=== PATIENT | female | born 1975 | race Caucasian/White ===

== ENCOUNTER 2020-03-30 10:14 | Outpatient (NON) | payer BC, SELFPAY ==
[2020-03-30 23:29] LABS: SARS-CoV-2 RNA PCR Positive
== END 2020-03-30 10:15 ==
LOC: ANHCOVIDDT 10:16
PROVIDERS: PCP Family Medicine; Visit Provider Family Medicine
DX: U07.1 COVID-19 (principal); R50.9 Fever, unspecified
CPT/HCPCS: C9803; U0003

== ENCOUNTER 2023-11-02 15:08 | Outpatient (CLI) | payer OTHER, SELFPAY ==
--- NOTE | ~2023-11-02 | MM_ITS ---
EXAMINATION: MM screening [facility] w [facility] HISTORY: Screening TECHNIQUE: Craniocaudal and mediolateral oblique 3-D tomosynthesis images were obtained and synthetic 2-D images were generated. CAD analysis was submitted and interpreted. COMPARISON: No prior mammogram is available for comparison at this institution. BREAST PARENCHYMAL COMPOSITION: Not dense: There are scattered areas of fibroglandular density. FINDINGS: There is no evidence of suspicious mass, calcification, or architectural distortion to sugg est malignancy in either breast. There has been no suspicious interval change. IMPRESSION: 1. No mammographic evidence of malignancy. 2. Recommend routine screening mammography in one year. BI-RADS Category 1: Negative Reviewed, dictated and finalized at location [facility].
== END 2023-11-02 15:09 | disposition home or self-care (01) ==
LOC: ANHIMG 15:09
PROVIDERS: PCP Nurse Practitioner Family; Visit Provider Student in an Organized Health Care Education/Training Program
DX: Z12.31 Encounter for screening mammogram for malignant neoplasm of breast (principal)
CPT/HCPCS: 77063; 77067

== ENCOUNTER 2024-04-02 00:59 | Day surgery (SDC) | payer OTHER, SELFPAY ==
[2024-03-11 12:59] VITALS: BMI 35.2
[2024-04-02 06:56] VITALS: BP 132/83; PULSE 81; RESP 18; TEMP 35.7; O2SAT 97; BMI 36.4
[2024-04-02] MEDS: LACTATED RINGERS 1,000 ML 150 ML IV CONT (07:05)
--- NOTE | 2024-04-02 07:26 | P.PNAN_ITS ---
Anes - Initial Pre Proc Eval Procedure: Operation Date: 04/02/24 08:00 Proposed Procedures p Screening Colonoscopy - Denis Goodman MD Date/Time: 04/02/24 07:26 Surgeon: Denis Goodman MD Pre Op Diagnosis: screening colon Patient Data Age: 49 Gender: F Height: 1.63 m Weight: 96.4 kg Last Vital Signs Temp 35.7 C L 04/02/24 06:56 Pulse 81 04/02/24 06:56 Resp 18 04/02/24 06:56 BP 132/83 04/02/24 06:56 Pulse Ox 97 04/02/24 06:56 O2 Del Method Room Air 04/02/24 06:56 Allergies Allergy/AdvReac Type Severity Reaction Status Date / Time tramadol AdvReac Intermediate Nausea and Verified 04/02/24 06:55 Vomiting Home Medications ?Medication ?Instructions ?Recorded ?Confirmed ?Type gabapentin 300 mg capsule 300 mg PO QHS 09/10/23 04/02/24 History lorazepam 1 mg tablet 1 mg PO DAILY 09/10/23 04/02/24 History estradiol 1 mg tablet 1 mg PO DAILY 01/02/24 04/02/24 History Patient hx anesthesia problems: none Family hx anesthesia problems: none Results Review: All pre-operative results and documents have been reviewed as part of the pre- operative evaluation. [facility] Past Medical History Medical History (Updated 04/02/24 @ 07:26 by Peterson Ibrahim MD) Obesity Depression Screening mammogram for breast cancer Surgical History Surgical History Hx of cholecystectomy H/O: hysterectomy Family History Family History Mother Family history of malignant neoplasm of breast in first degree relative Father Diabetes mellitus Social History Social History Smoking status: Former smoker Second hand tobacco smoke exposure: Yes Smoking end date: 03/26/17 Alcohol intake: current Substance use: never Substance use type: does not use Do You Feel Safe in your Home?: Yes Lack of Transportation: No Lack of Food: Never True Current Housing: I Have Housing Concerned About Future Housing: No Difficulty Paying Gas/Electric Bills: No Difficulty Paying for Meds: No Currently Unemployed: No Education: Bachelor's Degree Difficulty w/ Childcare or Family Care: No Living arrangements: with family Occupation/Education: occupation 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 Informed Consent: The patient's anesthetic plan and its attendant risks and benefits were discussed with the patient/family/POA. Questions were solicited and answers provided to the satisfaction of the patient/family/POA.
--- NOTE | 2024-04-02 08:04 | P.HP_ITS ---
History of Present Illness History of Present Illness Consent: Risks, benefits, and alternatives have been discussed and questions answered. Patient agrees to proceed with procedure. Chief complaint: screening colon Narrative: Glenys Gar is a 49 year old female here for first screening colonoscopy Review of Systems Review of Systems: All systems reviewed & are unremarkable except as noted in HPI and below PMFSH Past Medical History Medical History (Updated 04/02/24 @ 08:05 by Denis Goodman MD) Colon cancer screening Obesity Depression Screening mammogram for breast cancer Surgical History Surgical History Hx of cholecystectomy H/O: hysterectomy Family History Family History Mother Family history of malignant neoplasm of breast in first degree relative Father Diabetes mellitus Social History Social History Smoking status: Former smoker Second hand tobacco smoke exposure: Yes Smoking end date: 03/26/17 Alcohol intake: current Substance use: never Substance use type: does not use Do You Feel Safe in your Home?: Yes Lack of Transportation: No Lack of Food: Never True Current Housing: I Have Housing Concerned About Future Housing: No Difficulty Paying Gas/Electric Bills: No Difficulty Paying for Meds: No Currently Unemployed: No Education: Bachelor's Degree Difficulty w/ Childcare or Family Care: No Living arrangements: with family Occupation/Education: occupation 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 Gender identity (if verbalized by the patient): Female Meds Home Medications and Allergies Home Medications ?Medication ?Instructions ?Recorded ?Confirmed ?Type gabapentin 300 mg capsule 300 mg PO QHS 09/10/23 04/02/24 History lorazepam 1 mg tablet 1 mg PO DAILY 09/10/23 04/02/24 History estradiol 1 mg tablet 1 mg PO DAILY 01/02/24 04/02/24 History Allergies Allergy/AdvReac Type Severity Reaction Status Date / Time tramadol AdvReac Intermediate Nausea and Verified 04/02/24 06:55 Vomiting Vital Signs Vital Signs - 24 hr 04/02/24 06:56 Temperature 96.3 F L Pulse Rate 81 Respiratory Rate 18 Blood Pressure 132/83 Pulse Oximetry 97 Oxygen Delivery Room Air Exam Const: General: comfortable and no acute distress HENMT: Face/Nose/Sinus: Normal nares present Eyes: General: appearance normal, both eyes and all related structures Neck: Neck: no JVD Resp: Auscultation: clear to auscultation bilaterally Cardio: Rate: regular rate Rhythm: regular rhythm GI: Inspection: non-distended GI Palp: Yes Soft to palpation Skin: General skin exam: normal color Neuro: General: gait normal Speech: normal speech Extrem: General: normal to inspection Psych: Mental Status: mental status grossly normal Assessment and Plan Assessment and plan (1) Colon cancer screening: Code(s): Z12.11 - Encounter for screening for malignant neoplasm of colon Status: Acute Assessment and Plan: colonoscopy
[2024-04-02 08:19] VITALS: BP 114/76; PULSE 70; RESP 20; O2SAT 97
[2024-04-02 08:29] VITALS: BP 110/75; PULSE 77; RESP 22; O2SAT 99
[2024-04-02 08:39] VITALS: BP 123/80; PULSE 66; RESP 21; O2SAT 100
== END 2024-04-02 08:44 | disposition home or self-care (01) ==
PROVIDERS: PCP Nurse Practitioner Family; Visit Provider Internal Medicine Gastroenterology
PROC: 0DJD8ZZ Inspection of Lower Intestinal Tract, Via Natural or Artificial Opening Endoscopic (ICD-10-PCS; CPT 45378; principal; 2024-04-02 08:00)
DX: Z12.11 Encounter for screening for malignant neoplasm of colon (principal); D12.5 Benign neoplasm of sigmoid colon; F32.A Depression, unspecified; E66.9 Obesity, unspecified; Z68.36 Body mass index [BMI] 36.0-36.9, adult; Z98.890 Other specified postprocedural states; Z90.49 Acquired absence of other specified parts of digestive tract; Z87.891 Personal history of nicotine dependence; Z80.3 Family history of malignant neoplasm of breast
CPT/HCPCS: 45385; 88305; J2003; J2704; J7120